=== PATIENT | female | born 1985 | race Caucasian/White ===

== ENCOUNTER 2019-10-23 20:13 | Emergency (ER) | payer BC ==
[~2019-10-23] VITALS: Ht 162.6 cm; Wt 75.3 kg
[2019-10-23] MEDS ORDERED: LETR2.5 (20:24)
[2019-10-23] MEDS ORDERED: PROGESTERONE SUPP (20:24)
[2019-10-23] MEDS ORDERED: PRENATE ELITE1 EAC2 (20:25)
[2019-10-23] MEDS ORDERED: ONDA4ODT MM (22:04)
[2019-10-23] MEDS ORDERED: Norco 10-325 T1 EACH PO (22:04)
== END 2019-10-23 22:27 | disposition home or self-care (01) ==
LOC: ER 20:13
DX: S52.531A Colles' fracture of right radius, initial encounter for closed fracture (principal); W01.0XXA Fall on same level from slipping, tripping and stumbling without subsequent striking against object, initial encounter
CPT/HCPCS: 25605; 36415; 73130; 76000; 96374-59; 96375-59; 99152; 99283-25; A9270; A9270-GY; J2405; J2704; J3010; J7030